=== PATIENT | female | born 1970 | race Caucasian/White ===

== ENCOUNTER → 2021-01-31 | Outpatient (CLI) | payer OTHER ==
--- NOTE | 2021-01-31 15:42 | RAD ---
XR EXAM OF ANKLE_LEFT 2V 01/31/2021 3:36 PM Reason: BIMALLEOLAR ANKLE FX Comparison: Ankle radiographs from November 28, 2020 Technique: AP and lateral views of the left ankle Findings: Redemonstration of bimalleolar fracture. There is plate and screw fixation of the right dis anna marie fibula with trans-syndesmotic screw. 2 screws are seen in the medial malleolus. Hardware appears intact. The ankle joint is in anatomic alignment with congruent spacing of the ankle mortise. There i s soft tissue swelling. Small ankle joint effusion. Impression: Stable postoperative changes of bimalleolar fracture internal fixation. Electronically signed by: Weston Baez (01/31/2021 3:40 PM) [id number]
== END ==
LOC: RAD 10:54
PROVIDERS: ATTEND Family Medicine
DX: S82.842D Displaced bimalleolar fracture of left lower leg, subsequent encounter for closed fracture with routine healing (principal); M25.472 Effusion, left ankle; M79.89 Other specified soft tissue disorders; X58.XXXD Exposure to other specified factors, subsequent encounter
CPT/HCPCS: 73600